=== PATIENT | male | born 1995 | race Two or more races ===

== ENCOUNTER 2017-11-19 09:03 | Emergency (ER) | payer SELFPAY ==
[~2017-11-19] VITALS: Ht 172.7 cm; Wt 56.7 kg
[2017-11-19] MEDS ORDERED: NKM (09:11)
[2017-11-19 09:18] VITALS: BP 111/66
--- NOTE | 2017-11-19 09:24 | Emergency Room Report ---
History of Present Illness General Chief Complaint: Upper Extremity Injury Source: Patient Present Illness HPI 22-year-old male, presenting with right thumb pain. States that he was at work , was handling drywall, hyperextended his thumb, now complaining of pain and swelling today. Still able to move it slightly however increased pain. No other injuries Allergies: Coded Allergies: No Known Allergies (Unverified , 11/19/17) Patient History Past Medical History: see triage record Past Surgical History: none Pertinent Family History: none Reviewed Nursing Documentation: PMH: Agreed, PSxH: Agreed Nursing Documentation-PMH Past Medical History: No Stated History Review of Systems All Other Systems: negative except mentioned in HPI Physical Exam Vital Signs Date Time Temp Pulse Resp B/P (MAP) Pulse Ox O2 Delivery O2 Flow Rate FiO2 11/19/17 09:07 97.9 75 16 111/66 98 Room Air Sp02 EP Interpretation: reviewed, normal General Appearance: normal inspection, well appearing, no apparent distress, alert, GCS 15, non-toxic Head: normocephalic, atraumatic Eyes: bilateral eye normal inspection, bilateral eye PERRL, bilateral eye EOMI ENT: normal ENT inspection, normal pharynx, normal voice, moist mucus membranes Neck: normal inspection, full range of motion, supple Respiratory: normal inspection, lungs clear, normal breath sounds, no respiratory distress, no retraction, no wheezing, speaking full sentences, chest symmetrical Cardiovascular #1: normal inspection, regular rate, rhythm, no edema, normal capillary refill Cardiovascular #2: 2+ radial (R), 2+ radial (L) Gastrointestinal: normal inspection, non tender, soft, non-distended, no guarding Genitourinary: no CVA tenderness Musculoskeletal: other - Edema, tenderness, base of right thumb, able to extend the thumb, no increased laxity noted, decreased pinch strength Neurologic: normal inspection, alert, oriented x3, responsive, motor strength/ tone normal, sensory intact, normal gait, speech normal Psychiatric: normal inspection, judgement/insight normal, memory normal Skin: normal inspection, normal color, no rash, warm/dry, well hydrated, normal turgor Procedures Splinting Splinting : Consent: Verbal Location: RUE Pre-Made Type: velcro Splint: thumb spica Pre-Proc Neuro Vasc Exam: normal Post-Proc Neuro Vasc Exam: normal Patient Tolerated: Well Complications: None Medical Decision Making Diagnostic Impression: Primary Impression: Gamekeeper's thumb of right hand ER Course 22-year-old male with right thumb pain DDX: Gamekeepers thumb/contusion/fracture Plan: Pain control, x-ray ER course: Patient has remained stable during ED stay. Thumb spica Splint placed Pt is R hand dominant Disposition: Patient is to be discharged to home. Prescriptions given are Motrin Patient is instructed to follow up with orthopedic hand surgeon in one to 2 days without fail, told if he does not follow up can have permanent disability of hand, instructed to keep splint on at all times Strict return precautions discussed with patient such as worsening/severe pain , numbness, tense extremity, which may indicate severe illness. Patient verbalizes understanding and agrees with plan. Please note that this Emergency Department Report was dictated using [employer] house[employer] technology software, occasionally this can lead to erroneous entry secondary to interpretation by the dictation equipment Xray: Right hand 3 view Indication: Pain EP Interpretation: Yes Normal bony mineralization and alignment are demonstrated. No acute fractures, erosions, or periosteal reaction are seen. Soft tissues are unremarkable. Impression: No acute findings. Electronically signed by Madison Mao MD Last Vital Signs Date Time Temp Pulse Resp B/P (MAP) Pulse Ox O2 Delivery O2 Flow Rate FiO2 11/19/17 09:07 97.9 75 16 111/66 98 Room Air Disposition: HOME, SELF-CARE Condition: Improved Patient Instructions: Ulnar Collateral Ligament Injury of the Thumb Madison Mao M.D. Nov 19, 2017 09:24
--- NOTE | 2017-11-19 10:05 | Diagnostic Imaging Report ---
Indication: pain Findings: 3 views of the right hand were obtained. Normal bony mineralization and alignment are demonstrated. No acute fractures, erosions, or periosteal reaction are seen. Soft tissues are unremarkable. Impression: No acute findings.
[2017-11-19 10:39] VITALS: BP 111/66
== END 2017-11-19 10:43 | disposition home or self-care (01) ==
LOC: EMR 09:10
DX: S69.91XA Unspecified injury of right wrist, hand and finger(s), initial encounter (principal); X50.9XXA Other and unspecified overexertion or strenuous movements or postures, initial encounter; Y92.89 Other specified places as the place of occurrence of the external cause
CPT/HCPCS: 99283